=== PATIENT | female | born 1950 ===

== ENCOUNTER 2020-03-09 06:06 | Day surgery (SDC) | payer OTHER ==
[~2020-03-09 06:06] MED LIST: CALCIO PO; REFRESH CLASSI1 EACH OP; SIMVASTA PO; [UNRECOGNIZED DRUG - OTHER] PO
== END 2020-03-09 13:20 | disposition home or self-care (01) ==
LOC: CIR.AMB 06:06
PROVIDERS: ATTEND Obstetrics & Gynecology Gynecology
DX: N81.11 Cystocele, midline (principal); N81.5 Vaginal enterocele; Z20.828 Contact with and (suspected) exposure to other viral communicable diseases